=== PATIENT | female | born 1975 | race Caucasian/White ===

== ENCOUNTER 2017-03-25 18:36 | Inpatient (IN) | payer OTHER ==
[~2017-03-25] VITALS: Ht 160 cm; Wt 59.4 kg
[2017-03-25 21:08] LABS: HEMOGLOBIN 9.9 gm/dl (12.3-15.3); RED BLOOD COUNT 3.31 M/UL (4.00-5.10)
[2017-03-25 21:25] LABS: BUN/CREATININE RATIO 13 (0-10)
[2017-03-26] MEDS ORDERED: ROXICODONE15 MG PO (00:19)
[2017-03-26] MEDS ORDERED: ALPRAZOLAM0.5 MG PO (00:19)
[2017-03-26] MEDS ORDERED: CANCER MEDICATION (00:20)
[2017-03-27] MEDS ORDERED: LOVENOX SY60 MG/0.6 SQ (10:24)
== END 2017-03-30 17:32 | disposition home or self-care (01) | DRG 176 ==
LOC: ER1 18:36 → M/S 21:39 → ZEROF 21:39 → M/S 23:52
PROVIDERS: Student in an Organized Health Care Education/Training Program; ADMIT Internal Medicine
DX: I26.99 Other pulmonary embolism without acute cor pulmonale (principal); C34.11 Malignant neoplasm of upper lobe, right bronchus or lung; C77.1 Secondary and unspecified malignant neoplasm of intrathoracic lymph nodes; C79.31 Secondary malignant neoplasm of brain; C79.51 Secondary malignant neoplasm of bone; C79.72 Secondary malignant neoplasm of left adrenal gland; C79.71 Secondary malignant neoplasm of right adrenal gland; C79.89 Secondary malignant neoplasm of other specified sites; C79.02 Secondary malignant neoplasm of left kidney and renal pelvis; B18.2 Chronic viral hepatitis C; G89.3 Neoplasm related pain (acute) (chronic); F17.200 Nicotine dependence, unspecified, uncomplicated; R49.0 Dysphonia; Z79.891 Long term (current) use of opiate analgesic; Z79.899 Other long term (current) drug therapy; Z88.5 Allergy status to narcotic agent; Z80.9 Family history of malignant neoplasm, unspecified
CPT/HCPCS: 36415; 70450; 80053; 81001; 82550; 82553; 83874; 84484; 85025; 85610; 85730; 87086; 93005; 93970; 96361; 96372; 96374; 99285; G0378; J1642; J1650; J2405; J7030; J7040

== ENCOUNTER → 2017-03-25 | Outpatient (CLI) | payer OTHER ==
[~2017-03-25] MED LIST: ALPRAZOLAM0.5 MG PO; CANCER MEDICATION; LOVENOX SY60 MG/0.6 SQ; ROXICODONE15 MG PO
[2017-03-25 15:21] LABS: RED BLOOD COUNT 3.33 M/UL (4.00-5.10)
[2017-03-25 16:01] LABS: BUN/CREATININE RATIO 14 (0-10)
== END ==
LOC: OPSV 14:26 → CT 14:26
PROVIDERS: Internal Medicine Hematology & Oncology
DX: C34.11 Malignant neoplasm of upper lobe, right bronchus or lung (principal); C79.31 Secondary malignant neoplasm of brain; C77.3 Secondary and unspecified malignant neoplasm of axilla and upper limb lymph nodes; C77.1 Secondary and unspecified malignant neoplasm of intrathoracic lymph nodes; C79.71 Secondary malignant neoplasm of right adrenal gland; C79.51 Secondary malignant neoplasm of bone; C80.1 Malignant (primary) neoplasm, unspecified; B19.20 Unspecified viral hepatitis C without hepatic coma; R59.0 Localized enlarged lymph nodes; R22.31 Localized swelling, mass and lump, right upper limb; I26.99 Other pulmonary embolism without acute cor pulmonale
CPT/HCPCS: 36415; 36591; 70491; 71260; 74160; 80053; 83735; 85025; J1642; J7050; Q9962

== ENCOUNTER 2017-04-05 10:42 | Emergency (ER) | payer OTHER ==
[2017-04-05 11:49] LABS: HEMOGLOBIN 9.6 gm/dl (12.3-15.3); RED BLOOD COUNT 3.17 M/UL (4.00-5.10); WHITE BLOOD COUNT 4.4 K/UL (4.5-11.0)
== END 2017-04-05 12:36 | disposition home or self-care (01) ==
LOC: ER1 10:42
PROVIDERS: Physician Assistant Medical
DX: Z76.0 Encounter for issue of repeat prescription (principal); I26.99 Other pulmonary embolism without acute cor pulmonale; C34.90 Malignant neoplasm of unspecified part of unspecified bronchus or lung; F17.210 Nicotine dependence, cigarettes, uncomplicated; Z88.5 Allergy status to narcotic agent
CPT/HCPCS: 36415; 85025; 85610; 85730; 96372; 99282